=== PATIENT | female | born 1975 | race Caucasian/White ===

== ENCOUNTER 2016-11-26 14:07 | Emergency (ER) | payer OTHER | END 2016-11-26 14:15 | disposition home or self-care (01) | LOC: ER 14:07 | DX: S93.401A Sprain of unspecified ligament of right ankle, initial encounter (principal); S30.0XXA Contusion of lower back and pelvis, initial encounter; E78.5 Hyperlipidemia, unspecified; E07.9 Disorder of thyroid, unspecified; Z88.0 Allergy status to penicillin; W01.0XXA Fall on same level from slipping, tripping and stumbling without subsequent striking against object, initial encounter; Y92.009 Unspecified place in unspecified non-institutional (private) residence as the place of occurrence of the external cause ==